=== PATIENT | female | born 1965 | race Caucasian/White ===

== ENCOUNTER → 2024-11-26 09:19 | Outpatient (REF) | payer BC, SELFPAY | LOC: HWRAD 09:19 | PROVIDERS: ATTENDING PHYSICIAN Internal Medicine | DX: M89.9 Disorder of bone, unspecified (principal); Z12.31 Encounter for screening mammogram for malignant neoplasm of breast | CPT/HCPCS: 77063; 77067; 77080 ==

== ENCOUNTER 2025-09-15 06:24 | Emergency (ER) | payer BC, SELFPAY ==
[2025-09-15] VITALS (7 sets, daily range): BP systolic 113–131; BP diastolic 67–84; PULSE 67–84; BMI 26.9
[2025-09-15] MEDS: ANTIVERT 25 MG PO (07:21)
[2025-09-15 07:46] LABS: Hematocrit 39.8 % (37.0-47.0); Hemoglobin 13.8 g/dL (12.0-16.0); Mean Corp Hgb Conc. 34.7 g/dL (33.0-37.0); Mean Corpuscular Volume 87.5 fL (81.0-99.0); Nucleated Red Blood Cells % 0 %; Platelet Count 271 10^3/uL (130-400); Red Cell Dist. Width 12.9 % (11.5-14.5)
[2025-09-15] MEDS: NSS 1000 IV (07:47)
[2025-09-15 07:57] LABS: COVID-19 Antigen Negative (Negative)
[2025-09-15 08:26] LABS: ALT (SGPT) 16 U/L (0-35); AST (SGOT) 22 U/L (14-36); Albumin 4.4 g/dl (3.5-5.0); Alkaline Phosphatase 59 U/L (38-126); Blood Urea Nitrogen 16 mg/dl (7-17); Calcium 10.4 mg/dl (8.4-10.2); Carbon Dioxide 26 mmol/L (22-30); Chloride 106 mmol/L (98-107); Estimated Creatinine Clearance 68 ml/min; Glucose 109 mg/dl (70-99); Potassium 3.9 mmol/L (3.5-5.1); Sodium 138 mmol/L (135-145); Total Protein 7.0 g/dl (6.3-8.2); eGFR > 60.00
--- NOTE | 2025-09-15 10:59 | ED.GENMED ---
History of Present Illness
General
Chief Complaint: Dizziness
Source: patient
Exam Limitations: none
Time Seen by Provider: 09/15/25 06:52
Nursing documentation reviewed up to this point in time: agreed with
History of Present Illness
History of Present Illness:
aww MDM
Past History
Past History
ED Past Medical History: None
ED Past Surgical History: None
Social History
Tobacco: Non-smoker
Alcohol: None
Drug: None
Personal:
Review of Systems
Review of Systems
Allergies reviewed?: Yes
All Other Systems: Not applicable
Phy Exam
Physical Exam
Physical Exam:
GENERAL: Alert , in no apparent distress, well-appearing
HEAD: NCAT
EYE: pupils equal and reactive, no nystagmus, no photophobia
NECK: Supple,full rom, nontender. Painless range of motion
ENT: o/p clr, mmm.
CARDIAC: Regular rate and rhythm . no edema
LUNGS: Clear breath sounds bilaterally, no acute respiratory distress, no wheezes/rales/rhonchi
ABDOMEN: Soft, without focal tenderness, no r/g, no cvat
NEUROLOGICAL: Alert and orientedx 4, cn intact, no facial asymmetry, 5/5 strength in UE/LE, sensation intact, romberg neg, ambulates without assistance, neg pronator drift
SKIN: Warm and dry, skin intact.
MUSCULOSKELETAL: No edema, well perfused.
PSYCH: Normal and appropriate interaction.
[place]-Hallpike positive for subtle nystagmus especially with turning to the right, patient does have fatigue of her nystagmus very quickly
Course
Orders/Labs/Results
Orders:
Orders
09/15/25 06:54
Electrocardiogram (*1) Urgent
Reason for Study: Vertigo / Dizzy
EKG- Treatment ONCE
09/15/25 07:17
CT Head & Neck Angio W/wo IV Urgent
Comment:
Reason For Exam: R neck pain, dizziness, headache
Orthostatic VS- Treatment ONCE
Meclizine [Antivert] 25 mg PO NOW STA
09/15/25 07:38
COVID-19 Antigen Urgent
Source: Nasal Swab
Complete Blood Count/With Diff Urgent
Comprehensive Metabolic Panel Urgent
09/15/25 07:44
0.9% Sodium Chloride 1000 ml [Nss] 1,000 ml IV BOLUS
09/15/25 10:57
Acetaminophen [Tylenol] 650 mg PO NOW STA
Abnormal Lab Results
09/15/25
07:38
Glucose 109 H mg/dl
(70-99)
Calcium 10.4 H mg/dl
(8.4-10.2)
09/15/25 07:38
09/15/25 07:38
Vital Signs
Initial and Last Documented VS:
Initial Vital Signs
Temp Pulse Resp BP Pulse Ox
36.9 C 73 18 119/78 100
09/15/25 06:27 09/15/25 06:27 09/15/25 06:27 09/15/25 06:27 09/15/25 06:27
Last Documented Vital Signs
Temp Pulse Resp BP Pulse Ox
36.9 C 73 16 114/67 95
09/15/25 06:27 09/15/25 11:00 09/15/25 11:00 09/15/25 10:00 09/15/25 10:59
MDM/Problems Addressed
Differential Diagnosis Includes:
seE mdm
MDM/Problems Addressed:
Note:
CHIEF COMPLAINT(S)
Dizziness and vertigo.
HISTORY OF PRESENT ILLNESS
The patient is a 60-year-old female presenting with episodes of dizziness and vertigo. The symptoms began when she was stretching in bed, leading to a sensation of lightheadedness that lasted approximately five seconds. She experienced a second
episode of vertigo when massaging her neck due to soreness, which lasted slightly longer than the first episode. Both episodes resolved without intervention. The patient denies any prior history of vertigo, headaches, neck injuries, or chiropractic
treatment. Subsequently, she experienced another episode when she laid her head back after returning from the bathroom, but it was less severe. She reports no associated numbness or tingling in the extremities, chest pain, shortness of breath, or
recent illnesses. The patient describes mild nausea and headaches following these events but denies tinnitus or significant changes in hearing, though she noted some buzzing earlier. Despite the episodes, she did not experience a sensation of
near-syncope or passing out. The patient is currently on Symbyax for anxiety and reports no recent changes in her medication regimen.
PHYSICAL EXAM
- Nursing notes reviewed and vital signs reviewed.
- Neurological Examination: Cranial nerves intact. Observed nystagmus during specific vertigo positioning tests, indicating positional nystagmus.
- Musculoskeletal Examination: Neck movements were supportive. No pain reported on movement.
PLAN
- Initial assessment suggests peripheral vertigo, likely due to inner ear involvement.
- Perform diagnostic blood work and a head CT scan to rule out other causes such as stroke.
- Reassured the patient regarding the absence of stroke symptoms based on the examination.
- Treatment for vertigo to be initiated, assessing response to therapy.
- Discharge is considered if the patients condition improves with treatment and she can ambulate without issues. Further management to be discussed if symptoms persist.
DIFFERENTIAL DIAGNOSIS
The Differential Diagnosis includes, in no particular order and is not limited to:
1. Benign Paroxysmal Positional Vertigo (BPPV)
2. Vestibular Neuritis
3. M�ni�res Disease
4. Labyrinthitis
5. Medication-induced vertigo
6. Orthostatic hypotension
7. Cerebrovascular accident (stroke)
8. Migrainous vertigo
9. Dehydration
10. Anxiety-related dizziness
60-year-old female with no medical problems presents for sudden onset of dizziness when she rolled over in bed. Patient says it lasted a few seconds and it resolved. She was able to go back to sleep and woke up again and says she rubbed her neck,
thinking maybe she could turn her neck to the right. 3 L again. Patient said it resolved until another time when she turned her head to the left. Patient is not having trouble walking. She is a very mild headache or mild neck discomfort, she is
not quite sure. She feels a little bit anxious about this. She is not having any chest pain or shortness of breath. There has been no neck trauma, recent chiropractor visit, she is not having any vision changes or weakness. Patient is
orthostatics her mildly positive but she was not symptomatic. She was given IV fluids. Labs and CTA pending, meclizine ordered
CARE-UPDATE
09/15/25 - 10:07
Patient reports no worsening of headache or neck pain, with a transient headache that resolved. EKG and blood work are normal; COVID test is negative. Awaiting results from the CT scan to assess circulation to the brain and rule out carotid
dissection or aneurysm. Discussed potential for vestibular therapy if gait is affected. Currently managing vertigo symptoms with Meclizine, administered every eight hours, with noted drowsiness as a side effect. Patient advised to avoid sudden
movements of the head that could aggravate symptoms and to return if experiencing severe headache, vision loss, or other concerning symptoms. Provided outpatient physical therapy contact for vestibular rehabilitation if needed.
CARE-UPDATE
09/15/25 - 10:54
CTA was negative. Symptoms of dizziness and balance issues appear positional, not typical for a stroke, suggesting central vertigo is unlikely. Plan includes prescription of meclizine three times a day for two to three days, transitioning to as
needed. A script for outpatient physical therapy for vestibular therapy will be provided, as the patient is able to walk independently and does not require in-hospital vestibular therapy. The patient is advised against self-performing the Gagan
maneuver and encouraged to minimize head movement. Tylenol and a heating pad are suggested for neck stiffness. Patient is instructed to return if symptoms worsen.
Discussed with kailey Chatterjee who agreed
*Pulse Oximetry
SaO2: 95
Oxygen Mode of Delivery: Room air
Patient hypoxic: no (95)
*Critical Care Note
Total Time (30-74mins, 75-104mins- exclusive of procedures): Not Applicable
ED Attending Note
-
Portions of this chart may have been created with voice recognition software.� Occasional wrong word or��sound alike� substitutions may have occurred due to the inherent limitations of voice recognition software.
Discharge Plan
Departure
Patient Disposition: Home (Routine Discharge)
Date of Disposition: 09/15/25
Time of Disposition: 10:54
Patient with high blood pressure during this ER visit?: No
Discharge Problem:
Vertigo
Instructions: Vertigo (a Type of Dizziness) (DC)
Prescriptions:
New
meclizine 25 mg tablet
25 mg PO TID PRN (Reason: dizziness) Qty: 15 0RF
Referrals:
pt [Other]
Referral Note: physical therapy
Zac Agrawal CRNP [Family Provider]
Activity Restrictions/Additional Instructions:
Your workup here is very reassuring that this is peripheral vertigo. You were given a prescription for vestibular therapy. Call plan appointment. Until then take meclizine 25 mg 3 times a day for 2 to 3 days and then only as needed. Rotate your
body rather than turning her head [id number] and avoid bending over. Your CAT scan showed no signs of a dissection
Return for severe worst headache of your life, severe neck pain, weakness, blurred vision, passing out or any concerns
Interventions
Interventions:
*Risk Screen - Suicide Last Done: 09/15/25 06:27
*General Assessment Last Done: 09/15/25 06:58
*Neglect/Abuse Screening Last Done: 09/15/25 06:58
*ED COVID-19 Vaccine History Last Done: 09/15/25 06:58
*ED Influenza Vaccine History Last Done: 09/15/25 06:58
[facility] Fall Risk Assessment Tool Last Done: 09/15/25 06:57
*Nursing Disposition Last Done: 09/15/25 11:20
ED- Neurological Assessment Last Done: 09/15/25 06:58
ED- Cardiac Assessment Last Done: 09/15/25 06:58
Discharge Date and Time
Discharge Date/Time: 09/15/25 11:20
Print Language: FAROESE
== END 2025-09-15 11:20 | disposition home or self-care (01) ==
LOC: EMR 06:24
PROVIDERS: Physician Assistant; EMERGENCY PHYSICIAN Emergency Medicine
DX: R42 Dizziness and giddiness (principal); R51.9 Headache, unspecified; R11.0 Nausea; Z11.52 Encounter for screening for COVID-19
CPT/HCPCS: 99284; 96360; 70496; 70498; 80053; 85025; 87811; 93005; Q9967

== ENCOUNTER 2025-09-20 02:10 | Emergency (ER) | payer BC, SELFPAY ==
[2025-09-20 02:13] VITALS: BP 108/74
--- NOTE | 2025-09-20 02:55 | ED.GENMED ---
History of Present Illness
General
Chief Complaint: Abdominal Symptoms
Source: patient
Exam Limitations: none
Time Seen by Provider: 09/20/25 02:15
Nursing documentation reviewed up to this point in time: agreed with
History of Present Illness
History of Present Illness:
60-year-old female with no past medical history currently on no medications presents to the ER today with concerns of epigastric pain. She reports that this started after eating spicy macaroni and cheese for dinner around 6 or 7 PM. She also
reports that she took a higher vitamin D dose than usual. She reports that the pain is described as burning is worse with lying down. She reports that there is occasional radiation to the back. No pain in the chest. She notes that pain improves
with standing or walking. She also felt bloated at times. She reports that she tried taking Tums and Pepcid without relief. She denies any history of prior abdominal surgeries. Of note, she is seen in the ER last week for vertigo and reports
that the symptoms have been improving. The symptoms at that time were associated with neck pain she does report that she is taking more ibuprofen past few days daily than she usually does. She denies any dark tarry stools, any rectal bleeding.
She denies any urinary burning or urinary frequency.
Past History
Past History
ED Past Medical History: None
ED Past Surgical History: None
Social History
Tobacco: Non-smoker
Alcohol: None
Drug: None
Personal:
Review of Systems
Review of Systems
All Other Systems: ROS reviewed and negative except as documented in HPI and ROS
Phy Exam
Physical Exam
Physical Exam:
General: Patient is well appearing and in no acute distress; non-toxic
Skin: Warm and dry, no rashes or lesions
Head: Normocephalic, atraumatic
Eyes: Sclera non-icteric. EOMs intact.
Cardiac: Regular rate and rhythm, no murmurs
Peripheral Vascular: No lower extremity swelling or edema
Pulm: Normal respiratory effort, no wheezes, rales, rhonchi
Abdomen: Mild left upper quadrant tenderness to palpation, no palpable abdominal mass, no guarding
Neuro: CN II-XII intact, no focal neurologic deficits.
Psychiatric: Appropriate mood and affect.
Course
Orders/Labs/Results
Orders:
Orders
09/20/25 02:50
US Abdomen Complete/Upper Urgent
Comment:
Reason For Exam: epigastric pain
09/20/25 02:53
Electrocardiogram (*1) Urgent
Reason for Study: Abdominal Pain
EKG- Treatment ONCE
Mag Hydrox/Al Hydrox/Simeth [Maalox] 30 ml Phenobarb/Hyoscy/Atropine/Scop [] 10 ml Viscous Lidocaine 2% [Xylocaine Viscous Cup] 10 ml PO NOW
09/20/25 02:59
IV Insert/Care/Rem.- Treatment PRN
09/20/25 03:06
Complete Blood Count/With Diff Urgent
Comprehensive Metabolic Panel Urgent
Lipase Urgent
Troponin I Urgent
09/20/25 04:11
Phenobarb/Hyoscy/Atropine/Scop [] 10 ml .ROUTE .STK-MED ONE
09/20/25 04:12
Mag Hydrox/Al Hydrox/Simeth [Maalox] 30 ml .ROUTE .STK-MED ONE
Viscous Lidocaine 2% [Xylocaine Viscous Cup] 15 ml .ROUTE .STK-MED ONE
09/20/25 04:56
Sucralfate Suspension [Carafate Suspension] 1 gm PO NOW STA
09/20/25 04:57
Pantoprazole [Protonix IV] 40 mg IV NOW STA
Abnormal Lab Results
09/20/25
03:06
Glucose 106 H mg/dl
(70-99)
09/20/25 03:06
09/20/25 03:06
Vital Signs
Initial and Last Documented VS:
Initial Vital Signs
Temp Pulse Resp BP Pulse Ox
97.4 F 72 20 108/74 97
09/20/25 02:13 09/20/25 02:13 09/20/25 02:13 09/20/25 02:13 09/20/25 02:13
Last Documented Vital Signs
Temp Pulse Resp BP Pulse Ox
97.4 F 92 18 119/79 96
09/20/25 02:13 09/20/25 05:45 09/20/25 05:45 09/20/25 05:00 09/20/25 05:45
MDM/Problems Addressed
Differential Diagnosis Includes:
Differentials include gastritis, duodenitis, biliary colic, acute cholecystitis, ACS
MDM/Problems Addressed:
60-year-old female presents to the ER today with concerns of epigastric pain. Started after eating spicy macaroni for dinner and did not relieve with Tums or Pepcid. She has no chest pain. She has no cardiac history. On physical exam, she is
well-appearing, no acute distress. Mild left upper quadrant tenderness to palpation.
Vital signs are stable. Labs reviewed, no leukocytosis noted. Lipase normal. Troponin undetectable. LFTs normal. ECG reviewed, rate of 55 sinus bradycardia without ischemic changes. Suspect gastritis/GERD. Patient did have daily ibuprofen use
for the past few days multiple times a day because she was having neck pain. Patient was treated with GI cocktail with moderate relief. She is been a dose Protonix and will be started on a PPI as outpatient. Patient will follow-up with primary
care provider. Patient stable for discharge. Discussed tricked return precautions.
Chronic conditions affecting care:
Anxiety
*Pulse Oximetry
SaO2: 97
Patient hypoxic: no
*Critical Care Note
Total Time (30-74mins, 75-104mins- exclusive of procedures): Not Applicable
Data Reviewed
Review of Other/Old Records Reveals: Records (Reviewed ER physician documentation from 09/15/2025 patient seen for vertigo)
Source: patient
ED Attending Note
-
Portions of this chart may have been created with voice recognition software.� Occasional wrong word or��sound alike� substitutions may have occurred due to the inherent limitations of voice recognition software.
Discharge Plan
Departure
Patient Disposition: Home (Routine Discharge)
Date of Disposition: 09/20/25
Time of Disposition: 05:53
Patient with high blood pressure during this ER visit?: No
Condition: Good
Discharge Problem:
Epigastric pain
Instructions: Gastritis (DC)
Prescriptions:
New
pantoprazole 20 mg tablet,delayed release (DR/EC)
20 mg PO DAILY 14 Days Qty: 14 0RF
No Action
meclizine 25 mg tablet
25 mg PO TID PRN (Reason: dizziness) Qty: 15 0RF
Referrals:
Zac Agrawal CRNP [Family Provider]
Activity Restrictions/Additional Instructions:
Please follow up with your primary care provider in one week.
Pantoprazole has been sent to your pharmacy, please take one tablet once daily for 2 week trial.
PLEASE RETURN TO THE ER SHOULD YOU DEVELOP RECTAL BLEEDING, DARK TARRY STOOLS, CHEST PAIN, SHORTNESS OF BREATH, INTRACTABLE NAUSEA OR VOMITING, LIGHTHEADEDNESS, DIZZINESS, OR ANY OTHER SIGNS OR SYMPTOMS WORRISOME TO YOU.
Interventions
Interventions:
*Risk Screen - Suicide Last Done: 09/20/25 02:12
*General Assessment Last Done: 09/20/25 03:07
*Neglect/Abuse Screening Last Done: 09/20/25 02:12
*ED COVID-19 Vaccine History Last Done: 09/20/25 03:07
*ED Influenza Vaccine History Last Done: 09/20/25 03:07
[facility] Fall Risk Assessment Tool Last Done: 09/20/25 03:07
*Nursing Disposition Last Done: 09/20/25 05:56
EM-[facility] Assessment Last Done: 09/20/25 03:07
Discharge Date and Time
Discharge Date/Time: 09/20/25 06:34
Print Language: CAMBODIAN
[2025-09-20 03:07] VITALS: BMI 26.9
[2025-09-20 03:12] VITALS: BP 116/75
[2025-09-20 03:22] LABS: Hematocrit 37.2 % (37.0-47.0); Hemoglobin 12.8 g/dL (12.0-16.0); Mean Corp Hgb Conc. 34.4 g/dL (33.0-37.0); Mean Corpuscular Volume 84.7 fL (81.0-99.0); Nucleated Red Blood Cells % 0 %; Platelet Count 265 10^3/uL (130-400); Red Cell Dist. Width 12.6 % (11.5-14.5)
[2025-09-20 03:45] LABS: ALT (SGPT) 15 U/L (0-35); AST (SGOT) 20 U/L (14-36); Albumin 4.1 g/dl (3.5-5.0); Alkaline Phosphatase 66 U/L (38-126); Blood Urea Nitrogen 13 mg/dl (7-17); Calcium 10.0 mg/dl (8.4-10.2); Carbon Dioxide 25 mmol/L (22-30); Chloride 104 mmol/L (98-107); Estimated Creatinine Clearance 78 ml/min; Glucose 106 mg/dl (70-99); Lipase 97 U/L (23-300); Potassium 3.7 mmol/L (3.5-5.1); Sodium 137 mmol/L (135-145); Total Protein 6.7 g/dl (6.3-8.2); eGFR > 60.00
[2025-09-20 03:58] LABS: Troponin I < 0.012 ng/ml
[2025-09-20 04:00] VITALS: BP 100/82
[2025-09-20] MEDS: MAALOX 50 PO (04:12)
[2025-09-20 05:00] VITALS: BP 119/79
[2025-09-20] MEDS: CARAFATE SUSPENSION 1 GM PO (05:03)
[2025-09-20] MEDS: PROTONIX IV 40 MG IV (05:03)
== END 2025-09-20 06:34 | disposition home or self-care (01) ==
LOC: EMR 02:10
PROVIDERS: Physician Assistant; EMERGENCY PHYSICIAN Emergency Medicine
DX: R10.13 Epigastric pain (principal)
CPT/HCPCS: 99284; 96374; 76700; 80053; 83690; 84484; 85025; 93005